=== PATIENT | female | born 2000 | race Caucasian/White ===

== ENCOUNTER 2020-07-05 23:01 | Inpatient (IN) ==
[2020-07-06] MEDS ORDERED: ONDANSETRON 4 MG TAB.RAPDIS PO PRN (04:00)
[2020-07-06] MEDS ORDERED: DEXTROSE 5%-LACTATED RINGERS 1,000 ML IV PRN (04:00)
[2020-07-06] MEDS ORDERED: RINGER'S SOLUTION,LACTATED 1,000 ML IV ONE (04:00)
[2020-07-06] MEDS ORDERED: OXYTOCIN/DEXTROSE 5%-WATER 30 UNITS/500 ML BAG IV ONE (04:00)
[2020-07-06] MEDS ORDERED: LIDOCAINE HCL 50 ML VIAL PERI PRN (04:07)
[2020-07-06 06:43] LABS: Cocaine Ur Negative (NEGATIVE); Urine Barbiturate Negative (NEGATIVE); Urine Benzodiazepines Negative (NEGATIVE); Urine Opiates Negative (NEGATIVE); Urine PCP Negative (NEGATIVE); Urine THC Negative (NEGATIVE)
[2020-07-06 06:44] LABS: Random Urine Total Protein 24.6 mg/dL (0-12)
[2020-07-06 06:45] LABS: BUN/Creatinine Ratio 11.1 (9.0-21.6)
[2020-07-06 06:46] LABS: Anion Gap 13.3 mmol/L (6.8-13.8); Bilirubin, Total 0.3 mg/dL (0.0-1.1); Ca. Corrected For Albumin 9.7 mg/dL (8.4-10.2); Calcium * 9.2 mg/dL (7.9-10.9); Carbon Dioxide 23.2 mmol/L (24-32.6); Potassium 3.5 mmol/L (3.4-4.6); Total Protein 7.4 gm/dL (6.2-8.2)
[2020-07-06 06:48] LABS: Hemoglobin 11.9 gm/dL (12.5-16.0); Mean Cell Volume 89.7 fl (78-100); Mean Corpuscular Hemoglobin 30.5 pg (27-31); Mean Platelet Volume 9.4 fl (8-12.5); Neutrophil # 12.2 K/mm3 (1.3-6.0); Neutrophil % 74.9 % (42-75.0); Platelet Count 257 K/mm3 (150-450); White Blood Count 16.4 K/mm3 (4.0-10.5)
[2020-07-06] MEDS: PENICILLIN G POTASSIUM 2.5 MILLIONUNT in DEXTROSE 5 % IN WATER 100 ML IV SCH ×10 (06:49→22:53)
[2020-07-06] MEDS ORDERED: MISOPROSTOL 100 MCG TABLET VG PRN (08:18)
--- NOTE | 2020-07-06 09:09 | HP ---
Chief Complaint - Chief Complaint Date of Service: 07/06/20 Time of Service: 08:49 Chief Complaint: contractions History of Present Illness: 19 yo at 38 1/7 weeks who presents to L&D complaining of frequent painful contractions for the past several hours. She had several elevated blood pressures and borderline elevated Pr/Cr ratio of 270. She denies FROST, visual changes, epigastric pain, or increased edema. This complicated by anemia, anxiety/depression, 1st trimester tobacco and THC use. Rh positive Rubella immune GBS positive Medical History (Last Reviewed 07/06/20 @ 08:58 by Keegan Mckeon DO) Anemia (Acute) Onset Date: 04/22/20 w/ Anxiety Amitriptyline 10mg BID, Citalopram 20mg daily- stopped medication 12/15/19 Depression Amitriptyline 10mg BID, Citalopram 20mg daily- stopped medication 12/15/19 Febrile seizure infant Surgical History: Surgical History (Last Reviewed 07/06/20 @ 08:58 by Keegan Mckeon DO) History of tonsillectomy and adenoidectomy Onset Date: 08/17/15 Family History: Family History (Last Reviewed 07/06/20 @ 08:58 by Keegan Mckeon DO) Mother Endometriosis Kidney stone Grandmother Endometriosis Kidney stone Family/Other Myocardial infarction Hypertension Diabetes CVA (cerebral vascular accident) Hypoglycemia Father Unknown family medical history Social History: (Last Reviewed 07/06/20 @ 08:58 by Keegan Mckeon DO) Social History: Marital status: Single current occupational status: employed current occupation: [employer] Service: Yes Tobacco: Smoking Status: Former smoker Alcohol: alcohol intake: never Substance Use: substance use type: marijuana Dietary Habits: caffeine: Yes Exercise: Physical activity type: walking, weight lifting frequency: 1-2 times per week Review Of Systems (GEN) - Review of Systems Generalized/Overall Review: Present: No Symptoms Reported Respiratory: Present: No Symptoms Reported Cardiac: Present: No Symptoms Reported Abdominal: Present: Other - contractions Genitourinary: Present: No Symptoms Reported Musculoskeletal: Present: No Symptoms Reported Neurological: Present: No Symptoms Reported Skin: Present: No Symptoms Reported Endocrine: Present: No Symptoms Reported Allergies/Adverse Reactions: Allergies Allergy/AdvReac Type Severity Reaction Status Date / Time No Known Allergies Allergy Verified 08/11/20 14:40 Home Medications: HOME MEDICATIONS acetaminophen 500 mg tablet 500 mg PO Q6H PRN 03/11/20 [Last Taken 06/02/20] ferrous sulfate 325 mg (65 mg iron) tablet,delayed release 325 mg PO BID #30 tab 04/22/20 [Last Taken 07/05/20] Pnv No.95/Ferrous Fum/Folic AC [ Caplet] 1 ea PO DAILY 07/06/20 [Last Taken Unknown] Exam - Exam Vital Signs: Vital Signs - Last Taken Temp 36.9 C 07/06/20 06:30 Pulse 72 07/06/20 06:30 Resp 20 07/06/20 06:30 BP 135/72 07/06/20 06:30 Pulse Ox 99 07/06/20 06:30 Constitutional: Present: Alert, Oriented x3, Cooperative, Mild distress ENT Exam: Present: hearing grossly normal Neck: Absent: thyromegaly Breasts: Present: Exam deferred Respiratory: Present: lungs clear, no respiratory distress Cardiovascular/Chest: Present: normal peripheral pulses, regular rate, rhythm, edema - 2+ pitting to knee Abdomen: Present: soft, nontender, no rebound tenderness, other - gravid /Rectal: Present: Other - Cervix cl/-3 Extremity: Present: no calf tenderness, lower extremity edema - 2+ to knee b/l Skin Exam: Present: normal color, warm/dry, no cyanosis Lymphatic: Present: no adenopathy Neurologic: Present: alert, normal mood/affect, oriented x 3, other - DTR 3/4, no clonus Appearance: Present: appropriate appearance, appropriate insight Eye contact: Present: cooperative, good eye contact Thoughts: Present: normal thought pattern, normal mood /affect Diagnostic Studies: Abnormal Lab Results 07/06/20 07/06/20 07/06/20 Range/Units 00:40 00:40 00:40 WBC 16.4 H (4.0-10.5) K/mm3 RBC 3.90 L (4.2-5.4) M/mm3 Hgb 11.9 L (12.5-16.0) gm/dL Hct 35.0 L (37.0-47.0) % Immature Gran % (Auto) 1.60 H (0.001-0.429) % Immature Gran # (Auto) 0.26 H (0.000-0.0310) K/mm3 Lymphocytes % 15.4 L (20-51) % Neutrophils # 12.2 H (1.3-6.0) K/mm3 Monocytes # 1.1 H (0.0-1.0) k/mm3 Carbon Dioxide 23.2 L (24-32.6) mmol/L ALT 16 L (19-67) U/L Albumin 3.0 L (3.4-5.0) gm/dl U Random Total Protein 24.6 H (0-12) mg/dL U [place] Prot/Creat Ratio 270 H (0-199) mg/gm Laboratory Results WBC 16.4 K/mm3 (4.0-10.5) H 07/06/20 00:40 RBC 3.90 M/mm3 (4.2-5.4) L 07/06/20 00:40 Hgb 11.9 gm/dL (12.5-16.0) L 07/06/20 00:40 Hct 35.0 % (37.0-47.0) L 07/06/20 00:40 MCV 89.7 fl (78-100) 07/06/20 00:40 MCH 30.5 pg (27-31) 07/06/20 00:40 MCHC 34.0 g/dl (32-36) 07/06/20 00:40 RDW 13.0 % (11.5-14.0) 07/06/20 00:40 Plt Count 257 K/mm3 (150-450) 07/06/20 00:40 MPV 9.4 fl (8-12.5) 07/06/20 00:40 Immature Gran % (Auto) 1.60 % (0.001-0.429) H 07/06/20 00:40 Immature Gran # (Auto) 0.26 K/mm3 (0.000-0.0310) H 07/06/20 00:40 Neutrophils % 74.9 % (42-75.0) 07/06/20 00:40 Lymphocytes % 15.4 % (20-51) L 07/06/20 00:40 Monocytes % 6.5 % (0.0-9) 07/06/20 00:40 Eosinophils % 1.1 % (0.0-3.0) 07/06/20 00:40 Basophils % 0.5 % (0.0-1.0) 07/06/20 00:40 Nucleated RBC % 0.0 k/mm3 (0-1) 07/06/20 00:40 Neutrophils # 12.2 K/mm3 (1.3-6.0) H 07/06/20 00:40 Lymphocytes # 2.52 k/mm3 (1.5-3.5) 07/06/20 00:40 Monocytes # 1.1 k/mm3 (0.0-1.0) H 07/06/20 00:40 Eosinophils # 0.2 k/mm3 (0.0-0.7) 07/06/20 00:40 Absolute Basophils 0.1 k/mm3 (0.0-0.1) 07/06/20 00:40 Sodium 134 mmol/L (132-142) 07/06/20 00:40 Plasma Sodium 134 mmol/L (130-142) 07/06/20 00:40 Potassium 3.5 mmol/L (3.4-4.6) 07/06/20 00:40 Chloride 101 mmol/L (97-106) 07/06/20 00:40 Carbon Dioxide 23.2 mmol/L (24-32.6) L 07/06/20 00:40 Anion Gap 13.3 mmol/L (6.8-13.8) 07/06/20 00:40 BUN 9 mg/dL (3-23) 07/06/20 00:40 Creatinine 0.81 mg/dL (0.4-1.4) 07/06/20 00:40 Est GFR (Non-Af Amer) 96 mL/min (60-130) 07/06/20 00:40 BUN/Creatinine Ratio 11.1 (9.0-21.6) 07/06/20 00:40 Random Glucose 74 mg/dL (70-110) 07/06/20 00:40 Calcium 9.2 mg/dL (7.9-10.9) 07/06/20 00:40 Calcium Adj for Albumin 9.7 mg/dL (8.4-10.2) 07/06/20 00:40 Total Bilirubin 0.3 mg/dL (0.0-1.1) 07/06/20 00:40 AST 20 U/L (0-48) 07/06/20 00:40 ALT 16 U/L (19-67) L 07/06/20 00:40 Alkaline Phosphatase 139 U/L (50-170) 07/06/20 00:40 Total Protein 7.4 gm/dL (6.2-8.2) 07/06/20 00:40 Albumin 3.0 gm/dl (3.4-5.0) L 07/06/20 00:40 Ur Random Creatinine 91.2 mg/dL (60-200) 07/06/20 00:40 U Random Total Protein 24.6 mg/dL (0-12) H 07/06/20 00:40 U [place] Prot/Creat Ratio 270 mg/gm (0-199) H 07/06/20 00:40 Urine Opiates Screen Negative (NEGATIVE) 07/06/20 00:40 Barbiturate Screen Negative (NEGATIVE) 07/06/20 00:40 Ur Phencyclidine Scrn Negative (NEGATIVE) 07/06/20 00:40 Urine Amphetamine Negative (NEGATIVE) 07/06/20 00:40 U Benzodiazepines Scrn Negative (NEGATIVE) 07/06/20 00:40 Urine Cocaine Screen Negative (NEGATIVE) 07/06/20 00:40 Urine Marijuana (THC) Negative (NEGATIVE) 07/06/20 00:40 Assessment/Plan - Assessment/Plan (1) Gestational hypertension Assessment: Admit for augmentation of labor, IV PCN per GBS prophylaxis, Epidural PRN. Preeclampsia precautions. Problem: Acute Qualifiers: Trimester: third trimester Qualified Code(s): O13.3 - Gestational [p regnancy-induced] hypertension without significant proteinuria, third trimester (2) Substance abuse affecting in first trimester, antepartum Problem: Inactive (3) Anxiety and depression Problem: Inactive (4) Anemia Problem: Acute Qualifiers: Anemia type: iron deficiency Iron deficiency anemia type: inadequate dietary iron intake Qualified Code(s): D50.8 - Other iron deficiency anemias (5) Group beta Strep positive Problem: Acute
--- NOTE | 2020-07-06 12:59 | PN ---
Progess Note - Interim Date: 07/06/20 Time: 12:55 Narrative: 07/06/20 12:55 Patient rating contractions as mild Vital signs stable. Status post Cytotec 1 dose at 8:52 AM FHT: 140 baseline, reassuring contractions q 2-5 min Cervix: 1/50/-2, AROM-light meconium Impression: Intrauterine at 38-1/7 weeks. Gestational hypertension- stable. GBS positive-status post 3 doses of penicillin Plan: Continue present plan
[2020-07-06] MEDS ORDERED: NALOXONE HCL 1 MG/1 ML SYRG IV PRN (13:51)
[2020-07-06] MEDS ORDERED: BUPIVACAINE HCL/0.9 % NACL/PF 250 ML EP PRN (13:51)
[2020-07-06] MEDS ORDERED: ONDANSETRON HCL/PF 2 MG/ML VIAL IV PRN (13:51)
[2020-07-06] MEDS ORDERED: fentaNYL CITRATE/PF 50 MCG/ML AMPUL IT SCH (14:00)
--- NOTE | 2020-07-06 14:29 | ANES ---
Anesthesia Pre Procedure Eval Vitals/Labs: Last Vital Signs Temp 36.9 C 07/06/20 06:30 Pulse 72 07/06/20 06:30 Resp 20 07/06/20 06:30 BP 135/72 07/06/20 06:30 Pulse Ox 99 07/06/20 06:30 HOME MEDICATIONS acetaminophen 500 mg tablet 500 mg PO Q6H PRN 03/11/20 [Last Taken 06/02/20] ferrous sulfate 325 mg (65 mg iron) tablet,delayed release 325 mg PO BID #30 tab 04/22/20 [Last Taken 07/05/20] Pnv No.95/Ferrous Fum/Folic AC [ Caplet] 1 ea PO DAILY 07/06/20 [Last Taken Unknown] Allergies/Adverse Reactions: Allergies Allergy/AdvReac Type Severity Reaction Status Date / Time No Known Allergies Allergy Verified 06/29/20 14:40 - Planned Procedure Planned Procedure: LABOR Medication List Reviewed:: Yes Allergies Verified: Yes Medical History (Last Reviewed 07/06/20 @ 14:29 by Vic Wakefield CRNA) Anemia (Acute) Onset Date: 04/22/20 w/ Anxiety Amitriptyline 10mg BID, Citalopram 20mg daily- stopped medication 12/15/19 Depression Amitriptyline 10mg BID, Citalopram 20mg daily- stopped medication 12/15/19 Febrile seizure infant Surgical History (Last Reviewed 07/06/20 @ 14:29 by Vic Wakefield CRNA) History of tonsillectomy and adenoidectomy Onset Date: 08/17/15 Family History (Last Reviewed 07/06/20 @ 14:29 by Vic Wakefield CRNA) Mother Endometriosis Kidney stone Grandmother Endometriosis Kidney stone Family/Other Myocardial infarction Hypertension Diabetes CVA (cerebral vascular accident) Hypoglycemia Father Unknown family medical history - Family Anesthesia History Family History:: no untoward family reactions to anesthesia - Airway/Neck/Teeth Within Normal Limits:: Yes Teeth Condition: intact Neck Exam: full range of motion Mallampatti Score: 2 Thyromental (T-M) distance: > 6 cm Mandibulo Hyoid distance: > 3 cm - Respiratory Respiratory Physical: lungs clear Smoking Status: Never smoker Sleep Apnea currently treated: No Sleep Apnea by current assessment: No - Cardiovascular Tolerate Activity: Good Heart Sounds: S1 & S2, Regular - Gastrointestinal NPO since: 1200 - Anesthesia Assessment and Plan ASA Class: PS, II, E Anesthesia Type Plan: Epidural Planned difficult intubation/equipment available: No
--- NOTE | 2020-07-06 14:30 | ANES ---
Post Anesthesia Discharge - Transfer of Care Transfer of Care handoff given to nurse: Yes - Anesthesia Post Op Note Anesthesia Post Op Note: Care transferred to OB RN
--- NOTE | 2020-07-06 14:30 | ANES ---
Post Anesthesia Assessment - Vital Signs Vitals: Last Vital Signs Temp 36.9 C 07/06/20 06:30 Pulse 72 07/06/20 06:30 Resp 20 07/06/20 06:30 BP 135/72 07/06/20 06:30 Pulse Ox 99 07/06/20 06:30 Airway Patency: Normal - Mental Status Level Of Consciousness: Awake - Pain Level Pain Score: 2 - N/V Assessment Nausea/Vomiting Presence: None Dehydration:: No
--- NOTE | 2020-07-06 14:31 | ANES ---
Anesthesia Procedure Note Procedure Note: ANESTHESIA PROCEDURE NOTE Date of Procedure: 07/06/2020 Time of procedure: 1420. Performed by: Dragan Wakefield CRNA Core Blower Operator: None. Preprocedure diagnosis: Active labor. Post procedure diagnosis: Same. Procedure: Insertion of labor epidural. Indications: The patient is a 19-year-old prima para female in active labor requesting labor epidural for pain management. Findings: See below. Details of the procedure: The patient was placed in a sitting position. Back was prepped with DuraPrep. Patient was then draped in a sterile fashion. Lidocaine 1% was infiltrated to the skin and subcutaneous tissues at the level of the L3 4 interspace. The epidural space was identified using a 18-gauge Tuohy needle with [id number] technique. 20 mcg fentanyl was given intrathecally using a 27 ga. spinal needle. Epidural catheter was inserted without difficulty. Negative test dose was elicited using 5 mL of 1.5% preservative-free lidocaine plus epinephrine 1 200,000. The epidural catheter was then taped and secured in place. EBL: Minimal. Fluids: N/A. Specimen: N/A. Post procedure condition: The patient tolerated the procedure well. No complications were noted. Thank you for this consultation. Davis CRNA
[2020-07-06] MEDS ORDERED: ACETAMINOPHEN 325 MG TABLET PO PRN (20:09)
--- NOTE | 2020-07-06 20:15 | PN ---
Progess Note - Interim Date: 07/06/20 Time: 20:12 Narrative: 07/06/20 20:12 Patient comfortable with epidural Vital signs stable. Pitocin at 4 mu/min. FHT: 140 baseline, reassuring contractions q 2-3 min Cervix: 1-2/80/-2 at 1545 Impression: Intrauterine at 38 1/7 weeks induction of labor for gestational hypertension. GBS positive-status post multiple doses of IV penicillin Plan: We will limit vaginal checks until necessary to reduce risk of infection. Continue present plan
[2020-07-07] MEDS: PENICILLIN G POTASSIUM 2.5 MILLIONUNT in DEXTROSE 5 % IN WATER 100 ML IV SCH ×2 (03:06)
[2020-07-07] MEDS ORDERED: OXYTOCIN 20 UNITS in RINGER'S SOLUTION,LACTATED 1,000 ML IV ONE (03:34)
[2020-07-07] MEDS ORDERED: RINGER'S SOLUTION,LACTATED 1,000 ML IV PRN (03:34)
--- NOTE | 2020-07-07 03:43 | PN ---
Progess Note - Interim Date: 07/07/20 Time: 03:39 Narrative: 07/07/20 03:39 Called by nurse to assess patient for possible breech presentation. Patient dilated to 78/90/-2. heart tones 150, reassuring. Bedside ultrasound confirmed baby to be in tess breech presentation. Risk, benefits, and alternatives to section discussed with patient. All questions answered. We will proceed with a primary low transverse section for breech presentation. 07/07/20 03:42
[2020-07-07] MEDS ORDERED: BUPIVACAINE HCL/EPINEPHRINE 50 ML VIAL IJ ONE (03:59)
[2020-07-07] MEDS ORDERED: fentaNYL CITRATE/PF 50 MCG/ML AMPUL ONE (03:59)
[2020-07-07] MEDS ORDERED: ceFAZolin SODIUM 1 GM VIAL ONE (04:00)
[2020-07-07] MEDS ORDERED: ONDANSETRON HCL/PF 2 MG/ML VIAL ONE (04:00)
[2020-07-07] MEDS ORDERED: PROPOFOL VIAL IV ONE (04:00)
[2020-07-07] MEDS ORDERED: BUPIVACAINE HCL/EPINEPHRINE 50 ML VIAL ONE (04:00)
[2020-07-07] MEDS ORDERED: LIDOCAINE HCL/EPINEPHRINE 20 ML VIAL ONE (04:02)
--- NOTE | 2020-07-07 04:44 | ANES ---
Anesthesia Pre Procedure Eval Vitals/Labs: Last Vital Signs Temp 36.9 C 07/06/20 06:30 Pulse 72 07/06/20 06:30 Resp 20 07/06/20 06:30 BP 135/72 07/06/20 06:30 Pulse Ox 99 07/06/20 06:30 HOME MEDICATIONS acetaminophen 500 mg tablet 500 mg PO Q6H PRN 03/11/20 [Last Taken 06/02/20] ferrous sulfate 325 mg (65 mg iron) tablet,delayed release 325 mg PO BID #30 tab 04/22/20 [Last Taken 07/05/20] Pnv No.95/Ferrous Fum/Folic AC [ Caplet] 1 ea PO DAILY 07/06/20 [Last Taken Unknown] Allergies/Adverse Reactions: Allergies Allergy/AdvReac Type Severity Reaction Status Date / Time No Known Allergies Allergy Verified 06/29/20 14:40 - Planned Procedure Planned Procedure: C/S Medication List Reviewed:: Yes Allergies Verified: Yes Medical History (Last Reviewed 07/07/20 @ 04:43 by Geogres Cordova CRNA) Anemia (Acute) Onset Date: 04/22/20 w/ Anxiety Amitriptyline 10mg BID, Citalopram 20mg daily- stopped medication 12/15/19 Depression Amitriptyline 10mg BID, Citalopram 20mg daily- stopped medication 12/15/19 Febrile seizure infant Surgical History (Last Reviewed 07/07/20 @ 04:43 by Georges Cordova CRNA) History of tonsillectomy and adenoidectomy Onset Date: 08/17/15 Family History (Last Reviewed 07/07/20 @ 04:43 by Georges Cordova CRNA) Mother Endometriosis Kidney stone Grandmother Endometriosis Kidney stone Family/Other Myocardial infarction Hypertension Diabetes CVA (cerebral vascular accident) Hypoglycemia Father Unknown family medical history - Family Anesthesia History Family History:: no untoward family reactions to anesthesia, no familial bleeding tendencies, no family history of clotting disorders, no family history of premature - Airway/Neck/Teeth Within Normal Limits:: Yes Teeth Condition: intact Mallampatti Score: 2 Thyromental (T-M) distance: > 6 cm Mandibulo Hyoid distance: > 3 cm - Respiratory Respiratory Physical: lungs clear - Cardiovascular Tolerate Activity: Good Heart Sounds: S1 & S2, Regular - Anesthesia Assessment and Plan ASA Class: PS, II, E Anesthesia Type Plan: Block - Bilateral ultrasound guided TAP blocks for postop analgesia, Epidural
--- NOTE | 2020-07-07 05:14 | OR ---
Operative Report - Dictated Report Narrative: Indication: 19-year-old 1 para 0 admitted for induction of labor due to gestational hypertension found to have baby in breech presentation. Status: Urgent Pre Operative Diagnosis: 38 2/7-week intrauterine . Chas breech presentation. Gestational hypertension. GBS positive. Post Operative Diagnosis: Same. Procedure Preformed: Primary Low Transverse Section Surgeon: Cely Mckeon DO Electrical Unit Rebuilder: OR Staff Anesthesia: Epidural,TAP block Estimated Blood Loss: 300 mL Urine Output: 175 mL of clear urine Fluids Given: 1000 mL of crystalloid Drains: Mendoza to gravity Surgical Complications: None Specimens: Placenta to pathology Findings: Male born in chas breech presentation at 0423 on 07/07/2021 with Apgars 9 and 9, weighing 3722 g. Normal uterus, tubes, ovaries. Technique: The patient was taken to the operating room and placed in dorsal supine position with a left lateral tilt. After adequate epidural anesthesia, mendoza catheter insertion,SCDs placed, and 2 g of Ancef and 500 mg of Zithromax given intravenously preoperatively, the abdominal cavity was entered via a modified Gerard-Williamson incision. Two rolled laps were placed in the pericolic gutters on either side of the uterus. A transverse incision was made in the lower uterine segment and extended laterally and upwardly with digital traction. Clear fluid was noted upon amniotomy. The infant was delivered easily-first delivering the buttocks and aft coming body to the level of the shoulders, then both legs were brought down and the baby was wrapped in a towel, rotated left and right to deliver both shoulders and the head easily followed. The cord was clamped and cut and was handed off to awaiting tinsel machine operator. The placenta was allowed to deliver spontaneously. The uterus was cleared of clot and debris. Uterine incision was closed with 0 Vicryl using a running stitch. A second imbricating layer was placed. Excellent hemostasis was noted. Rolled laps were removed from the abdominal cavitiy. The peritoneum was closed with a running 3-0 Monocryl. The same suture was used to approximate the rectus and pyramidalis muscles. The fascia was closed with a running 0 Vicryl. The subcutaneous layer was closed with a running 3-0 Monocryl. The same suture was used to approximate the subdermal layer. The skin was closed with a running 4-0 Monocryl and Dermabond. Sponge, lap, needle, and instrument count were correct x 2. Disposition: The patient was transferred to post anesthesia care unit in good condition
[2020-07-07] MEDS ORDERED: IBUPROFEN 800 MG TABLET PO PRN (05:17)
[2020-07-07] MEDS ORDERED: SIMETHICONE 80 MG TAB.CHEW PO PRN (05:17)
[2020-07-07] MEDS ORDERED: ONDANSETRON HCL/PF 2 MG/ML VIAL IV PRN (05:17)
[2020-07-07] MEDS ORDERED: BISACODYL 10 MG SUPP.RECT RC PRN (05:17)
[2020-07-07] MEDS ORDERED: SENNOSIDES 8.6 MG TABLET PO PRN (05:17)
--- NOTE | 2020-07-07 05:20 | ANES ---
Post Anesthesia Discharge - Transfer of Care Transfer of Care handoff given to nurse: Yes - Discharge from PACU Discharge from PACU when meets criteria: Yes - Discharge to ASU Discharge to ASU-no complications/pt stable: Yes
--- NOTE | 2020-07-07 05:22 | ANES ---
Post Anesthesia Assessment - Vital Signs Vitals: Last Vital Signs Temp 36.9 C 07/07/20 05:15 Pulse 102 H 07/07/20 05:15 Resp 18 07/07/20 05:15 BP 133/52 07/07/20 05:15 Pulse Ox 100 07/07/20 05:15 Airway Patency: Normal - Mental Status Level Of Consciousness: Awake - Pain Level Pain Score: 0 - N/V Assessment Nausea/Vomiting Presence: None Dehydration:: No
--- NOTE | 2020-07-07 05:22 | ANES ---
Anesthesia Procedure Note Procedure Note: ANESTHESIA PROCEDURE NOTE Date of Procedure: 07/07/2020. Time of procedure: 509. Performed by: Georges Cordova CRNA Petroleum Engineering Professor: None. Preprocedure diagnosis: Primary . Post procedure diagnosis: Same. Procedure: Bilateral ultrasound-guided transversus abdominis plane block for postop analgesia. Indications: The patient is a 19-year-old female post section. Findings: See below. Details of the procedure: ChloraPrep was used on the patient's abdomen and the procedure was performed under sterile technique. The right abdominal fascial layer between the internal oblique muscle and the transversus abdominis muscles was identified under ultrasound guidance. A 21-gauge 4 inch block needle was inserted under ultrasound guidance to the target fascial plane. 15 mL's of 0.25% bupivacaine plus epinephrine 1:200,000 was injected after negative aspiration for blood. The needle was removed intact and the procedure was then repeated at the left side. No complications were noted. The images were retained in the hospital medical database. EBL: Minimal. Fluids: N/A. Specimen: N/A. Post procedure condition: The patient tolerated the procedure well. No complications were noted. Thank you for this consultation. Georges Cordova CRNA
[2020-07-07] MEDS: IBUPROFEN 800 MG TABLET PO PRN ×3 (05:53→18:46)
[2020-07-07] MEDS: oxyCODONE HCL/ACETAMINOPHEN 1 TAB TABLET PO PRN ×6 (05:53→22:42)
[2020-07-07] MEDS ORDERED: HYDROmorphone HCL 1 MG/ML DISP.SYRIN IV ONE (06:58)
[2020-07-07] MEDS: PRENATAL VITS96/IRON FUM/FOLIC 1 TAB TABLET PO SCH (09:05)
[2020-07-07] MEDS: FERROUS SULFATE 325 MG TABLET PO SCH ×2 (09:05→20:43)
[2020-07-07] MEDS: DOCUSATE SODIUM 100 MG CAPSULE PO SCH ×2 (09:05→20:43)
--- NOTE | 2020-07-07 10:28 | PN ---
Progess Note - Interim Date: 07/07/20 Time: 10:28 History for MU History for MU Definition: * The number of deliveries resulting in a live the patient experienced prior to current hospitalization * The previous delivery of live twins or any live multiple gestation is considered one live event. *If primagravida or nulliparous is documented select zero for the number of previous live births. Live Events: Live Events: 0
[2020-07-07] MEDS: ENOXAPARIN SODIUM 40 MG/0.4 ML SYRG SC SCH (12:03)
[2020-07-08] MEDS: IBUPROFEN 800 MG TABLET PO PRN ×3 (02:22→22:37)
[2020-07-08] MEDS: oxyCODONE HCL/ACETAMINOPHEN 1 TAB TABLET PO PRN ×7 (02:22→22:37)
[2020-07-08] MEDS ORDERED: ceFAZolin SODIUM 1 GM VIAL IV PRN (06:00)
[2020-07-08] MEDS ORDERED: AZITHROMYCIN 500 MG in DEXTROSE 5 % IN WATER 250 ML IV PRN ×2 (06:00)
[2020-07-08] MEDS: DOCUSATE SODIUM 100 MG CAPSULE PO SCH ×2 (09:04→20:16)
[2020-07-08] MEDS: FERROUS SULFATE 325 MG TABLET PO SCH ×2 (09:04→20:16)
[2020-07-08] MEDS: PRENATAL VITS96/IRON FUM/FOLIC 1 TAB TABLET PO SCH (09:04)
--- NOTE | 2020-07-08 09:12 | PN ---
Subjective - Date and Time Seen Date: 07/08/20 Time: 09:11 Objective - Vitals Vitals: Last Vital Signs Temp 36.7 C 07/08/20 08:23 Pulse 71 07/08/20 08:23 Resp 16 07/08/20 08:23 BP 134/69 07/08/20 08:23 Pulse Ox 99 07/08/20 08:23 Patient denies complaints. Tolerating regular diet. Ambulating without difficulty. Pain well controlled. Lochia wnl. Abdomen - soft, appropriately tender Incision -clean, dry, intact uterus - firm, at umbilicus -1 no calf tenderness Impression: Post op day #1 s/p primary section. Gestational hypertension-resolved Plan: Continue routine post-operative/ care Cauti Physician Documentation - Urinary Catheter Management Urethral ([place]) Date of Insertion: 07/06/20 Time of Insertion: 15:15 Date of Removal: 07/07/20 Time of Removal: 16:40 Assessment/Plan - Problems/Diagnosis (1) Gestational hypertension Problem: Acute Qualifiers: Trimester: third trimester Qualified Code(s): O13.3 - Gestational [-induced] hypertension without significant proteinuria, third trimester (2) Substance abuse affecting in first trimester, antepartum Problem: Inactive (3) Anxiety and depression Problem: Inactive (4) Anemia Problem: Acute Qualifiers: Anemia type: iron deficiency Iron deficiency anemia type: inadequate dietary iron intake Qualified Code(s): D50.8 - Other iron deficiency anemias (5) Group beta Strep positive Problem: Acute
[2020-07-08] MEDS: ENOXAPARIN SODIUM 40 MG/0.4 ML SYRG SC SCH (12:25)
[2020-07-09] MEDS: oxyCODONE HCL/ACETAMINOPHEN 1 TAB TABLET PO PRN ×6 (02:02→22:09)
[2020-07-09] MEDS: IBUPROFEN 800 MG TABLET PO PRN ×3 (05:17→19:05)
[2020-07-09] MEDS: PRENATAL VITS96/IRON FUM/FOLIC 1 TAB TABLET PO SCH (08:14)
[2020-07-09] MEDS: DOCUSATE SODIUM 100 MG CAPSULE PO SCH ×2 (08:14→21:12)
[2020-07-09] MEDS: FERROUS SULFATE 325 MG TABLET PO SCH ×2 (08:14→21:12)
[2020-07-09] MEDS: ENOXAPARIN SODIUM 40 MG/0.4 ML SYRG SC SCH (12:01)
--- NOTE | 2020-07-09 12:57 | PN ---
Subjective - Date and Time Seen Date: 07/09/20 Time: 12:55 Objective - Vitals Vitals: Last Vital Signs Temp 36.4 C 07/09/20 12:09 Pulse 85 07/09/20 12:09 Resp 18 07/09/20 12:09 BP 156/86 H 07/09/20 12:09 Pulse Ox 98 07/09/20 12:09 Patient denies complaints. Ambulating well. Tolerating regular diet. Pain well controlled. Lochia wnl. Abdomen - soft, appropriately tender Incision -clean, dry, intact uterus - firm, at umbilicus -2 DTR-3/4, no clonus. No calf tenderness Impression: Post op day #2 s/p primary section for breech presentation in labor. Gestational hypertension-stable. Plan: Continue routine post-operative/ care. Monitor blood pressures closely and observe closely for severe features of preeclampsia/ hypertension. Cauti Physician Documentation - Urinary Catheter Management Urethral (Minaya) Date of Insertion: 07/06/20 Time of Insertion: 15:15 Date of Removal: 07/07/20 Time of Removal: 16:40 Assessment/Plan - Problems/Diagnosis (1) Gestational hypertension Problem: Acute Qualifiers: Trimester: third trimester Qualified Code(s): O13.3 - Gestational [-induced] hypertension without significant proteinuria, third trimester (2) Substance abuse affecting in first trimester, antepartum Problem: Inactive (3) Anxiety and depression Problem: Inactive (4) Anemia Problem: Acute Qualifiers: Anemia type: iron deficiency Iron deficiency anemia type: inadequate dietary iron intake Qualified Code(s): D50.8 - Other iron deficiency anemias (5) Group beta Strep positive Problem: Acute
[2020-07-10] MEDS: IBUPROFEN 800 MG TABLET PO PRN (04:23)
[2020-07-10] MEDS: oxyCODONE HCL/ACETAMINOPHEN 1 TAB TABLET PO PRN ×3 (04:23→13:03)
[2020-07-10 07:17] LABS: Hematocrit 30.8 % (37.0-47.0); Hemoglobin 10.6 gm/dL (12.5-16.0); Mean Cell Volume 90.6 fl (78-100); Mean Corpuscular Hemoglobin 31.2 pg (27-31); Mean Corpuscular Hgb Conc 34.4 g/dl (32-36); Mean Platelet Volume 8.7 fl (8-12.5); Neutrophil # 5.4 K/mm3 (1.3-6.0); Neutrophil % 55.8 % (42-75.0); Platelet Count 247 K/mm3 (150-450); White Blood Count 9.7 K/mm3 (4.0-10.5)
[2020-07-10 07:33] LABS: Albumin * 2.4 gm/dl (3.4-5.0); Anion Gap 10.9 mmol/L (6.8-13.8); BUN/Creatinine Ratio 12.2 (9.0-21.6); Bilirubin, Total 0.1 mg/dL (0.0-1.1); Ca. Corrected For Albumin 10.1 mg/dL (8.4-10.2); Calcium * 9.1 mg/dL (7.9-10.9); Carbon Dioxide 27.8 mmol/L (24-32.6); Potassium 3.7 mmol/L (3.4-4.6); Total Protein 6.5 gm/dL (6.2-8.2)
--- NOTE | 2020-07-10 07:36 | PN ---
Subjective - Date and Time Seen Date: 07/10/20 Time: : Objective - Vitals Vitals: Last Vital Signs Temp 37.1 C 07/10/20 06:55 Pulse 73 07/10/20 06:55 Resp 20 07/10/20 06:55 BP 156/89 H 07/10/20 07:10 Pulse Ox 100 07/10/20 06:55 Patient denies complaints. Patient denies headache, visual changes, or epigastric pain. Ambulating without difficulty. Tolerating regular diet. Pain well controlled. L ochia wnl. Abdomen - soft, appropriately tender Incision - [clean, dry, intact] Uterus - firm, at umbilicus -[3] DTR-3/4, 3 beat clonus. No calf tenderness Impression: Post op day #3 s/p primary section. Gestational hypertension with occasional severe range blood pressure, now with increasing neurological symptoms. Plan: We will get CBC and CMP and follow blood pressures closely until labs are back. If abnormalities persist will proceed with IV magnesium sulfate for 24 hours and treat blood pressures accordingly with antihypertensives. [facility] Physician Documentation - Urinary Catheter Management Urethral ([place]) Date of Insertion: 07/06/20 Time of Insertion: 15:15 Date of Removal: 07/07/20 Time of Removal: 16:40 Assessment/Plan - Problems/Diagnosis (1) Gestational hypertension Problem: Acute Qualifiers: Trimester: third trimester Qualified Code(s): O13.3 - Gestational [preg chandler-induced] hypertension without significant proteinuria, third trimester (2) Substance abuse affecting in first trimester, antepartum Problem: Inactive (3) Anxiety and depression Problem: Inactive (4) Anemia Problem: Acute Qualifiers: Anemia type: iron deficiency Iron deficiency anemia type: inadequate dietary iron intake Qualified Code(s): D50.8 - Other iron deficiency anemias (5) Group beta Strep positive Problem: Acute
[2020-07-10] MEDS: FERROUS SULFATE 325 MG TABLET PO SCH (08:51)
[2020-07-10] MEDS: DOCUSATE SODIUM 100 MG CAPSULE PO SCH (08:51)
[2020-07-10] MEDS: PRENATAL VITS96/IRON FUM/FOLIC 1 TAB TABLET PO SCH (08:52)
[2020-07-10 13:39] VITALS: BP 147/86
== END 2020-07-10 13:15 | disposition home or self-care (01) | DRG 787 ==
LOC: OBCLINIC 23:01 → OB 07-06 03:26
PROVIDERS: ADMIT Obstetrics & Gynecology; ATTEND Obstetrics & Gynecology
CPT/HCPCS: 36415; 59025; 80053; 80307; 82570; 84155; 84156; 85025; 88307; 88888; J2405